=== PATIENT | female | born 1950 | race Caucasian/White ===

== ENCOUNTER 2024-09-13 21:46 | Emergency (ER) | payer MEDICAID, SELFPAY ==
[2024-09-13 21:52] VITALS: BP 139/83; PULSE 102; RESP 17; TEMP 36.4; O2SAT 99; BMI 27.9
[2024-09-13 22:11] LABS: Basophils Absolute Auto 0.1 X10*3/uL (0.0-0.2); Basophils Percent Auto 0.3 % (0-2); Eosinophils Absolute Auto 0.1 X10*3/uL (0.0-0.4); Eosinophils Percent Auto 0.5 % (0-4); Hematocrit 47.2 % (37.0-47.0); Hemoglobin 15.9 g/dl (12.0-16.0); Imm Gran Abs Auto 0.15 X10*3/uL (0.00-0.03); Imm Gran Pct Auto 0.6 % (0.0-0.4); Lymphocytes Absolute Auto 1.9 X10*3/uL (1.2-4.9); Lymphocytes Percent Auto 7.7 % (20-40); MANUAL DIFF FLAG SCAN; Mean Corpuscular HGB Conc 33.7 g/dl (31.0-35.0); Mean Corpuscular Hemoglobin 30.1 pg (27.0-33.0); Mean Corpuscular Volume 89.2 fL (80.0-98.0); Mean Platelet Volume 9.8 fL (9.4-12.3); Monocytes Absolute Auto 1.1 X10*3/uL (0.1-1.2); Monocytes Percent Auto 4.6 % (2-11); Neutrophils Absolute Auto 20.8 x10*3/uL (2.0-8.3); Neutrophils Percent Auto 86.3 % (45-73); Platelet Count 328 X10*3/uL (160-400); Red Blood Count 5.29 X10*6/uL (4.20-5.50); Red Cell Distribution Width 13.8 % (11.0-16.0); SCAN SMEAR FLAG 1; White Blood Count 24.1 X10*3/uL (4.8-10.8)
[2024-09-13 22:25] LABS: Alanine Aminotransferase 30 U/L (0-31); Albumin Level 4.7 g/dL (3.5-5.0); Alkaline Phosphatase 73 U/L (39-117); Anion Gap 18 (12-20); Aspartate Amino Transferase 37 U/L (5-31); Bilirubin Total 0.5 mg/dL (0.0-1.0); Blood Urea Nitrogen 14 mg/dL (9-16); Calcium 10.1 mg/dL (8.4-10.2); Carbon Dioxide 22 mmol/L (22-29); Chloride 102 mmol/L (96-108); Creatinine Clr Calc Pharmacy 64.7; Estimated Glomerular Filt Rate > 60; Glucose Random 139 mg/dL (60-115); Potassium 4.2 mmol/L (3.3-5.1); Sodium 138 mmol/L (135-145); Total Protein 8.4 g/dL (6.5-8.0)
[2024-09-13 22:35] LABS: SLIDE REVIEW VERIFIED
[2024-09-13 23:03] LABS: Lipase 32 U/L (8-78)
[2024-09-13 23:25] VITALS: BP 142/71; PULSE 95; RESP 16; TEMP 36.6; O2SAT 96
--- NOTE | 2024-09-13 23:28 | MHC.EDTECH ---
at this time this tech changed the pt over into hospital gown and obtained VS which were stable, call light given for safety
--- NOTE | 2024-09-14 01:28 | ED_ITS ---
HPI - Nausea/Vomiting/Diarrhea General Chief complaint: Nausea/Vomiting/Diarrhea Stated complaint: vomiting diarrhea Time Seen by Provider: 09/14/24 01:01 Source: patient and family Mode of arrival: ambulatory Limitations: language barrier (Welsh speaking only, metal pattern maker used) History of Present Illness ED Provider: Dr. Gerson Mcdaniels HPI Narrative: 74-year-old female with a history of diabetes mellitus who presents emergency department for evaluation of nausea, vomiting , abdominal pain and diarrhea. Yesterday morning the patient had loose diarrheal stools. At around 18:00 hours she developed nausea, abdominal pain and vomited at least 6 times. She also had at least 10 episodes of watery diarrhea. She also complained of lower abdominal pain. She was described it as a moderate pressure-like sensation which was not relieved by her diarrhea. She denied fever but did have shaking chills. She states that after vomiting she did cough but did not have a cough prior. She denied chest pain, shortness of breath, dyspnea on exertion. She did not notice any blood in her emesis or in her diarrhea. Patient was here in the emergency department with her daughter. The daughter states the patient has been visiting from [place] and 1 month prior when she was in [place] she did have salmonella, he was treated with antibiotics and improved. Related Data Previous Rx's ?Medication ?Instructions ?Recorded ondansetron 4 mg disintegrating 4 mg PO Q6-8H PRN nausea and 09/14/24 tablet vomiting #14 tabs Allergies Allergy/AdvReac Type Severity Reaction Status Date / Time No Known Allergies Allergy Verified 09/13/24 21:59 Review of Systems 2 Review of Systems: Yes all other systems are reviewed and are negative [facility] Past Medical History [facility] Narrative: Social history: Patient denies tobacco, alcohol and drug use Social History Social History Advance Directives: No Advance Directives Information Provided: Yes Do you have a plan to hurt others: No Plan Physical Exam 2 Vital Signs: Vital Signs: Last Vital Signs Temp 97.8 F 09/13/24 23:25 Pulse 95 09/13/24 23:25 Resp 16 09/13/24 23:25 BP 142/71 H 09/13/24 23:25 Pulse Ox 96 09/13/24 23:25 O2 Del Method Room Air 09/13/24 23:25 BMI result Body Mass Index 27.9 Vital signs revealed an elevated blood pressure otherwise unremarkable Exam: General: Awake, alert in no distress Head: Normocephalic, atraumatic EENT: PERRL, Lids normal, sclera normal, conjunctiva normal, nose normal , ears normal, throat without erythema or exudates Neck: Supple, no adenopathy Lung: breath sounds symmetric, no wheezing, rales or rhonchi Chest: symmetric movement, nontender Heart: regular rate and rhythm, normal S1, S2 no murmurs or rubs Abdomen: soft, moderate epigastric tenderness, moderate lower abdominal tenderness, nondistended, normal bowel sounds Back: no vertebral tenderness, no CVAT Extremities: no deformities, moves all extremities symmetrically Neuro: Awake, alert, oriented, normal speech, cranial nerves intact, moves all extremities symmetrically Psych: Pleasant, cooperative Medications Administered Discontinued Medications Generic Name Dose Route Start Last Admin Trade Name Freq PRN Reason Stop Dose Admin Sodium Chloride 1,000 mls @ 999 mls/hr 09/14/24 01:19 09/14/24 02:31 Ns IV 09/14/24 02:19 Infused .Q1H1M STA Infusion Ketorolac Tromethamine 15 mg 09/14/24 01:19 09/14/24 01:54 Ketorolac Tromethamine 15 Mg/Ml Vial IVPUSH 09/14/24 01:20 15 mg ONCE STA Administration Loperamide HCl 4 mg 09/14/24 01:19 09/14/24 02:05 Loperamide Hcl 2 Mg Capsule PO 09/14/24 01:20 4 mg ONCE ONE Administration Ondansetron HCl 4 mg 09/14/24 01:19 09/14/24 01:55 Ondansetron Hcl 4 Mg/2 Ml Vial IVPUSH 09/14/24 01:20 4 mg ONCE ONE Administration Medical Decision Making Medical Decision Making MDM Narrative: 74-year-old female with a history of diabetes mellitus who presents emergency department for evaluation of nausea, vomiting, diarrhea and abdominal pain with symptoms starting yesterday morning getting worse at 18:00 hours. Patient was had 6 episodes of vomiting and greater than 10 episodes of watery diarrhea. She was also complaining of lower abdominal pain. She denied fever but did have chills. Vital signs revealed an elevated blood pressure otherwise unremarkable. Physical examination did reveal epigastric and lower abdominal pain otherwise was unremarkable. Differential diagnosis: ?Includes but is not limited to viral syndrome, viral gastroenteritis, infectious diarrhea, gastritis, anemia, electrolyte abnormalities Course: 01:36 My interpretation patient's laboratory evaluation as follows: Elevated WBC 80275. Elevated glucose 139. Elevated AST 32. Lipase was normal. Patient was presentation and physical exam findings are consistent with a viral gastroenteritis and I did discuss this with the patient the patient's daughter. Patient was ordered to get normal saline IV x1 L, Zofran 4 mg IV and Toradol 15 mg IV. She was also given Imodium 4 mg orally. 03:14 Patient was feeling significantly better after the above treatment. She has been able to drink fluid and eat crackers without any difficulty. The patient was discharged home with printed and verbal instructions. She was prescribed Zofran 4 mg ODT every 6-8 hours as needed for nausea and vomiting. She was advised to take Tylenol, ibuprofen and Imodium. She was advised to stay on a [place] diet for the next 24 hours. Lab Data MDM Lab Attestation statement: I reviewed the patient's lab results. 09/13/24 22:05 09/13/24 22:05 Labs: Lab Results 09/13/24 Range/Units 22:05 WBC 24.1 H (4.8-10.8) X10*3/uL RBC 5.29 (4.20-5.50) X10*6/uL Hgb 15.9 (12.0-16.0) g/dl Hct 47.2 H (37.0-47.0) % MCV 89.2 (80.0-98.0) fL MCH 30.1 (27.0-33.0) pg MCHC 33.7 (31.0-35.0) g/dl RDW 13.8 (11.0-16.0) % Plt Count 328 (160-400) X10*3/uL MPV 9.8 (9.4-12.3) fL Immature Gran % (Auto) 0.6 H (0.0-0.4) % Neut % (Auto) 86.3 H (45-73) % Lymph % (Auto) 7.7 L (20-40) % Mclean % (Auto) 4.6 (2-11) % Eos % (Auto) 0.5 (0-4) % Baso % (Auto) 0.3 (0-2) % Lymph # (Auto) 1.9 (1.2-4.9) X10*3/uL Mclean # (Auto) 1.1 (0.1-1.2) X10*3/uL Eos # (Auto) 0.1 (0.0-0.4) X10*3/uL Baso # (Auto) 0.1 (0.0-0.2) X10*3/uL Abs Immat Gran (auto) 0.15 H (0.00-0.03) X10*3/uL Absolute Neuts (auto) 20.8 H (2.0-8.3) x10*3/uL Absolute Nucleated RBC 0.000 (0.0-0.012) X10*3/uL Nucleated RBC % (auto) 0.0 (0.0-0.2) /100WBC Smear Tech's Comments VERIFIED Sodium 138 (135-145) mmol/L Potassium 4.2 (3.3-5.1) mmol/L Chloride 102 (96-108) mmol/L Carbon Dioxide 22 (22-29) mmol/L Anion Gap 18 (12-20) BUN 14 (9-16) mg/dL Creatinine 0.66 (0.5-1.4) mg/dL Estim Creat Clear Calc 64.7 Estimated GFR > 60 Random Glucose 139 H (60-115) mg/dL Calcium 10.1 (8.4-10.2) mg/dL Total Bilirubin 0.5 (0.0-1.0) mg/dL AST 37 H (5-31) U/L ALT 30 (0-31) U/L Alkaline Phosphatase 73 (39-117) U/L Total Protein 8.4 H (6.5-8.0) g/dL Albumin 4.7 (3.5-5.0) g/dL Lipase 32 (8-78) U/L Independent Historian Clinical information obtained from an independent historian. History obtained from or confirmed by: Other (Daughter) Prescription Management I considered prescription management with: Other (Antiemetic: Zofran) Chronic Conditions Patient?s care impacted by: Diabetes Discharge Plan Discharge Clinical Impression: Gastroenteritis, Viral syndrome Patient Disposition: Home, Self-Care Instructions: Gastroenteritis (DC) Additional Instructions: Your blood work did reveal an elevated white blood count otherwise was unremarkable. Your symptoms are consistent with a virus which is causing your nausea, vomiting, abdominal pain and diarrhea. Take Zofran ODT 4 mg pills, 1 pill dissolved in your mouth every 8 hours as needed for nausea and vomiting. Take ibuprofen 200 mg pills, 2 pills every 6 hours as needed for pain or fever. Take Tylenol (acetaminophen) 500 mg pills, 2 pills every 6 hours as needed for pain or fever. For the next 24 hours, stay on a [place] diet (bananas, rice, applesauce, tea and toast). For diarrhea I want you to take Imodium 2 mg pills. ?Take 2 pills after the 1st loose, diarrheal stool then 1 pill after each loose, diarrheal stool up to 4 pills per day. ?This usually stops diarrhea within 24 hours. Follow-up with your doctor in 2 days. Please return to the emergency department if your symptoms get worse or if you develop any symptoms that are concerning to you. Please see the return to work note Prescriptions: New ondansetron 4 mg tablet,disintegrating 4 mg PO Q6-8H PRN (Reason: nausea and vomiting) Qty: 14 0RF Stand Alone Forms: Work/School Release Print Language: Welsh
[2024-09-14] MEDS: 0.9 % Sodium Chloride 1,000 ML 999 ML IV (01:30)
[2024-09-14] MEDS: Ketorolac Tromethamine 15 MG/ML VIAL IVPUSH (01:54)
[2024-09-14] MEDS: ondansetron HCL 4 MG/2 ML VIAL IVPUSH (01:55)
[2024-09-14] MEDS: Loperamide HCl 2 MG CAPSULE 4 MG PO (02:05)
[2024-09-14 03:19] VITALS: BP 108/64; PULSE 93; RESP 16; TEMP 36.4; O2SAT 94
== END 2024-09-14 03:26 | disposition home or self-care (01) ==
PROVIDERS: Emergency Provider Emergency Medicine Emergency Medical Services
DX: A08.4 Viral intestinal infection, unspecified (principal); R11.2 Nausea with vomiting, unspecified; B34.9 Viral infection, unspecified; Z79.899 Other long term (current) drug therapy
CPT/HCPCS: 36415; 80053; 83690; 85025; 96361; 96374; 96375; 99284; J1885; J2405